=== PATIENT | male | born 1975 | race Caucasian/White ===

== ENCOUNTER 2021-06-06 23:12 | Emergency (ER) | payer SELFPAY ==
[~2021-06-06] VITALS: Ht 180.3 cm; Wt 95.5 kg
[2021-06-07] MEDS ORDERED: LIDOCAINE 1% 10 ML VIAL ONE (01:28)
[2021-06-07] MEDS ORDERED: LIDOCAINE 1% 10 ML VIAL SQ ONE (01:30)
[2021-06-07] MEDS ORDERED: BACITRACIN 0.9 GM PACKET OINTMENT TP ONE (01:30)
[2021-06-07 01:31] VITALS: BP 129/63
== END 2021-06-07 02:00 | disposition home or self-care (01) ==
LOC: EMS 23:15
DX: S61.213A Laceration without foreign body of left middle finger without damage to nail, initial encounter (principal); F17.210 Nicotine dependence, cigarettes, uncomplicated; W27.8XXA Contact with other nonpowered hand tool, initial encounter; Y93.89 Activity, other specified; Y92.89 Other specified places as the place of occurrence of the external cause; Y99.8 Other external cause status
CPT/HCPCS: 12001; 99282; J3490

== ENCOUNTER 2021-07-05 20:25 | Emergency (ER) | payer MEDICAID ==
[~2021-07-05] VITALS: Ht 177.8 cm; Wt 100.0 kg
[2021-07-05] MEDS ORDERED: SULF-261 PO (21:09)
[2021-07-05] MEDS ORDERED: POVIDONE-IODINE 10% 15 ML SOLUTION UD TP ONE (21:45)
[2021-07-05] MEDS ORDERED: IBUPROFEN 800 MG TABLET PO ONE (21:45)
[2021-07-05] MEDS ORDERED: LIDOCAINE 1% 10 ML VIAL SQ ONE (21:45)
[2021-07-05 22:15] VITALS: BP 132/78
[2021-07-05] MEDS ORDERED: DOXY-354 PO (22:37)
== END 2021-07-05 22:46 | disposition home or self-care (01) ==
LOC: EMS 20:27
DX: L02.612 Cutaneous abscess of left foot (principal); L03.116 Cellulitis of left lower limb; F17.210 Nicotine dependence, cigarettes, uncomplicated; Z79.899 Other long term (current) drug therapy
CPT/HCPCS: 10060; 87070; 87205; 99283; J3490

== ENCOUNTER 2021-07-07 16:29 | Emergency (ER) | payer MEDICAID ==
[~2021-07-07] VITALS: Ht 182.9 cm; Wt 90.9 kg
[~2021-07-07 16:29] MED LIST: DOXY-354 PO; SULF-261 PO
[2021-07-07 16:32] VITALS: BP 131/77
[2021-07-07] MEDS ORDERED: CEPH500C3 PO (17:36)
[2021-07-07] MEDS ORDERED: SULF-261 PO (17:37)
[2021-07-07] MEDS ORDERED: CefTRIAXone SODIUM 1 GM/VIAL IM ONE (17:45)
[2021-07-07] MEDS ORDERED: LIDOCAINE/PF 1% 2 ML VIAL IM ONE (17:45)
[2021-07-07] MEDS ORDERED: SULFAMETHOX/TRIMETH DS 800-160 MG/TABLET PO ONE (18:15)
== END 2021-07-07 18:22 | disposition home or self-care (01) ==
LOC: EMS 16:30
DX: L03.116 Cellulitis of left lower limb (principal); L02.612 Cutaneous abscess of left foot; F17.210 Nicotine dependence, cigarettes, uncomplicated
CPT/HCPCS: 96372; 99283; J0696; J3490

== ENCOUNTER 2021-09-13 08:16 | Emergency (ER) | payer BC, MEDICAID ==
[~2021-09-13] VITALS: Ht 180.3 cm; Wt 95.5 kg
[~2021-09-13 08:16] MED LIST changes: +CEPH-558 PO
[2021-09-13] MEDS ORDERED: DOXYCYCLINE HYCLATE 100 MG TABLET PO ONE (10:30)
[2021-09-13] MEDS ORDERED: POVIDONE-IODINE 10% 120 ML SOLUTION TP ONE (10:30)
[2021-09-13] MEDS ORDERED: IBUPROFEN 600 MG TABLET PO ONE (10:30)
[2021-09-13] MEDS ORDERED: CEPHALEXIN MONOHYDRATE 500 MG CAPSULE PO ONE (10:30)
[2021-09-13] MEDS ORDERED: LIDOCAINE 1% 10 ML VIAL SQ ONE (10:30)
[2021-09-13] MEDS ORDERED: IBUP-1554 PO (11:18)
[2021-09-13] MEDS ORDERED: CEPH-558 PO (11:18)
[2021-09-13] MEDS ORDERED: DOXY-354 PO (11:18)
[2021-09-13] MEDS ORDERED: CHLO473L2 TP (11:22)
[2021-09-13 11:31] VITALS: BP 129/75
== END 2021-09-13 11:33 | disposition home or self-care (01) ==
LOC: EMS 08:16
DX: L02.412 Cutaneous abscess of left axilla (principal); L73.2 Hidradenitis suppurativa; F17.210 Nicotine dependence, cigarettes, uncomplicated
CPT/HCPCS: 10060; 99284; J3490

== ENCOUNTER 2021-09-15 18:35 | Emergency (ER) | payer MEDICAID ==
[~2021-09-15] VITALS: Ht 177.8 cm; Wt 95.5 kg
[~2021-09-15 18:35] MED LIST changes: +CHLO473L2 TP; +IBUP-1554 PO; -SULF-261 PO
[2021-09-15 18:40] VITALS: BP 136/80
== END 2021-09-15 19:53 | disposition home or self-care (01) ==
LOC: EMS 18:37
DX: Z48.00 Encounter for change or removal of nonsurgical wound dressing (principal); F11.20 Opioid dependence, uncomplicated; F17.210 Nicotine dependence, cigarettes, uncomplicated; Z98.890 Other specified postprocedural states
CPT/HCPCS: 99281; Z7502

== ENCOUNTER 2021-11-25 20:47 | Emergency (ER) | payer BC, MEDICAID ==
[~2021-11-25] VITALS: Ht 182.9 cm; Wt 95.0 kg
[2021-11-25] MEDS ORDERED: KETOROLAC TROMETHAMINE 30 MG/ML VIAL IM ONE (22:30)
[2021-11-25] MEDS ORDERED: SULF-261 PO ×2 (22:38→23:49)
[2021-11-25 22:44] VITALS: BP 125/71
== END 2021-11-25 22:56 | disposition home or self-care (01) ==
LOC: EMS 20:47
DX: L03.115 Cellulitis of right lower limb (principal); F17.210 Nicotine dependence, cigarettes, uncomplicated; Z79.899 Other long term (current) drug therapy
CPT/HCPCS: 99283; 96372; J1885

== ENCOUNTER 2022-04-10 02:30 | Emergency (ER) | payer SELFPAY ==
[~2022-04-10] VITALS: Ht 175.3 cm; Wt 77.3 kg
[~2022-04-10 02:30] MED LIST changes: +SULF-261 PO
[2022-04-10] MEDS ORDERED: METH5SOL3 PO (02:48)
[2022-04-10 04:30] VITALS: BP 135/78
== END 2022-04-10 05:15 | disposition home or self-care (01) ==
LOC: EMS 02:31
DX: S60.512A Abrasion of left hand, initial encounter (principal); S60.222A Contusion of left hand, initial encounter; F11.20 Opioid dependence, uncomplicated; F17.210 Nicotine dependence, cigarettes, uncomplicated; V00.131A Fall from skateboard, initial encounter; Y93.89 Activity, other specified; Y92.89 Other specified places as the place of occurrence of the external cause; Y99.8 Other external cause status
CPT/HCPCS: 99283